=== PATIENT | male | born 2000 | race Caucasian/White ===

== ENCOUNTER 2022-08-11 19:07 | Emergency (ER) | payer MEDICAID, OTHER ==
[~2022-08-11] VITALS: Ht 188 cm; Wt 72.5 kg
[2022-08-11 19:38] VITALS: BP 126/82
== END 2022-08-12 02:09 | disposition left against medical advice (07) ==
LOC: EDBD 19:07 → ER 19:11
DX: R10.84 Generalized abdominal pain (principal); Z53.21 Procedure and treatment not carried out due to patient leaving prior to being seen by health care provider
CPT/HCPCS: 93005